=== PATIENT | female | born 1990 | race Two or more races ===

== ENCOUNTER 2024-04-18 11:23 | Emergency (ER) | payer OTHER ==
[~2024-04-18] VITALS: Ht 157.5 cm; Wt 104.7 kg
[2024-04-18 13:21] VITALS: BP 134/81; PULSE 100; RESP 16; TEMP 98.8; O2SAT 96
[2024-04-18] MEDS ORDERED: CYCL-837 PO (14:28)
[2024-04-18] MEDS ORDERED: IBUP1TAB5 PO (14:28)
== END 2024-04-18 14:50 | disposition home or self-care (01) ==
LOC: ER 11:23
DX: S13.4XXA Sprain of ligaments of cervical spine, initial encounter (principal); V49.9XXA Car occupant (driver) (passenger) injured in unspecified traffic accident, initial encounter; Y93.89 Activity, other specified; Y92.89 Other specified places as the place of occurrence of the external cause; Y99.8 Other external cause status